=== PATIENT | female | born 1985 | race Hispanic/Latino ===

== ENCOUNTER 2017-06-18 18:49 | Emergency (ER) | payer OTHER ==
[2017-06-18 19:00] VITALS: BMI 23.5
[2017-06-18 19:07] VITALS: BP 121/85; PULSE 97; RESP 18; TEMP 98.4; O2SAT 99
[2017-06-18 19:59] LABS: URINE BILIRUBIN NEGATIVE (NEGATIVE); URINE BLOOD NEGATIVE (NEGATIVE); URINE GLUCOSE (UA) NEGATIVE (NEGATIVE); URINE LEUKOCYTE ESTERASE NEGATIVE Leu/uL (NEGATIVE); URINE NITRATE NEGATIVE (NEGATIVE); URINE PROTEIN TRACE mg/dL (<30 mg/dL); URINE UROBILINOGEN 0.2 E.U./dL (<1 E.U./dL)
[2017-06-18 20:02] LABS: URINE APPEARANCE CLEAR (CLEAR); URINE COLOR YELLOW (YELLOW)
[2017-06-18 20:15] LABS: URINE BACTERIA SMALL (NEG); URINE RBC 0 - 2 /hpf (0-2); URINE WBC 0 - 2 /hpf (0-6)
[2017-06-18 20:16] LABS: HCG,QUALITATIVE URINE NEGATIVE (NEGATIVE)
[2017-06-18 20:38] LABS: HEMOGLOBIN 12.6 g/dL (12.0-16.0); MEAN CELL VOLUME 92.7 fl (80.0-105.0); MEAN CORPUSCULAR HEMOGLOBIN 31.6 pg (25.0-35.0); MEAN CORPUSCULAR HGB CONC 34.1 g/dl (31.0-37.0); RBC 3.99 10^6/uL (3.5-6.1); RED CELL DISTRIBUTION WIDTH 12.7 % (11.5-14.5); WHITE BLOOD COUNT 6.5 10^3/ul (4.5-11.0)
[2017-06-18 20:46] LABS: ALB/GLOB RATIO 1.5 (1.1-1.8); ALBUMIN 4.3 g/dL (3.0-4.8); ALT/SGPT 60 U/L (7-56); AST/SGOT 47 U/L (15-39); BLOOD UREA NITROGEN 6 mg/dL (7-21); CALCIUM 9.1 mg/dL (8.4-10.5); GFR AFRICAN-AMERICAN > 60; GFR NON-AFRICAN AMERICAN > 60; LIPASE 103 U/L (23-300)
--- NOTE | 2017-06-18 21:13 | US ---
EXAM: US Pelvis Complete, Transabdominal CLINICAL HISTORY: 31 years old, female; Pain; Pelvic pain TECHNIQUE: Real-time transabdominal pelvic ultrasound (complete) with image documentation. COMPARISON: CT - ABD PELVIS W/O PO OR IV CONT 03/24/2016 7:55:29 PM FINDINGS: Uterus/cervix: Uterus measures 5.6 x 3.1 x 3.4 cm in size. No myometrial mass. Endometrium: 1.0 cm in thickness. Right ovary: 2.4 x 2.6 x 2.4 cm in size. 2.0 x 1.9 x 1.7 cm anechoic lesion. Normal flow. Left ovary: 1.4 x 2.4 x 1.8 cm in size. No mass. Normal flow. Free fluid: No significant free fluid. Bladder: Unremarkable as visualized. IMPRESSION: 1. RIGHT ovarian cyst. 2. Incidental/non-acute findings are described above. EXAM: US Pelvis, Transvaginal CLINICAL HISTORY: 31 years old, female; Pain; Pelvic pain TECHNIQUE: Real-time transvaginal pelvic ultrasound (complete) with image documentation. Transvaginal imaging was used for better evaluation of the endometrium and adnexa. COMPARISON: CT - ABD PELVIS W/O PO OR IV CONT 03/24/2016 7:55:29 PM FINDINGS: Uterus/cervix: Uterus measures 5.6 x 3.1 x 3.4 cm in size. No myometrial mass. Endometrium: 1.0 cm in thickness. Right ovary: 2.4 x 2.6 x 2.4 cm in size. 2.0 x 1.9 x 1.7 cm anechoic lesion. Normal flow. Left ovary: 1.4 x 2.4 x 1.8 cm in size. No mass. Normal flow. Free fluid: No significant free fluid. Bladder: Empty bladder which cannot be evaluated with this probe.
--- NOTE | 2017-06-18 22:07 | ED PDOC ---
Arrival/HPI - General Chief Complaint: Female Genitourinary Time Seen by Provider: 06/18/17 19:23 Historian: Patient - History of Present Illness Narrative History of Present Illness (Text): 06/18/17 19:38 Genoveva Pereyra is a 31 year old female, whose past medical history includes Crohn's disease, who presents to the ED complaining of lower abdominal discomfort for the past 3 weeks.Described as a pressure like discomfort.No dysuria.Occassional urinary frequency.No vaginal bleeding or abnormal vaginal discharge. Patient denies any fever, chills, nausea, vomiting, diarrhea, back pain, headache, dizziness, or any other complaints. Time/Duration: < month (3 weeks) Symptom Onset: Gradual Symptom Course: Unchanged Activities at Onset: Rest, Light Context: Home Past Medical History - Provider Review Nursing Documentation Reviewed: Yes - Infectious Disease Hx of Infectious Diseases: None - Cardiac Hx Cardiac Disorders: No - Pulmonary Hx Respiratory Disorders: Yes Hx Pneumonia: Yes - Neurological Hx Neurological Disorder: No - HEENT Hx HEENT Disorder: No - Renal Hx Renal Disorder: No - Endocrine/Metabolic Hx Endocrine Disorders: No - Hematological/Oncological Hx Blood Disorders: Yes Hx Anemia: Yes (HAD IRON INFUSIONS) - Integumentary Hx Dermatological Disorder: No - Musculoskeletal/Rheumatological Hx Musculoskeletal Disorders: Yes Hx Falls: No Other/Comment: LEFT WRIST FX,CHIN FX,BROKEN PATELLA,SPRAINED ANKLE - Gastrointestinal Hx Gastrointestinal Disorders: Yes Hx Crohn's Disease: Yes Hx Gastroesophageal Reflux: Yes Other/Comment: ENTEROCOLITIS - Genitourinary/Gynecological Hx Genitourinary Disorders: No Other/Comment: L OVARIAN CYST 1.6 CM - Psychiatric Hx Psychophysiologic Disorder: No Hx Emotional Abuse: No Hx Physical Abuse: No Hx Substance Use: No - Anesthesia Hx Anesthesia: No Hx Anesthesia Reactions: No Hx Malignant Hyperthermia: No - Suicidal Assessment Feels Threatened In Home Enviroment: No Family/Social History - Physician Review Nursing Documentation Reviewed: Yes Family/Social History: Unknown Family HX Smoking Status: Never Smoked Hx Alcohol Use: No Hx Substance Use: No Allergies/Home Meds Allergies/Adverse Reactions: Allergies hydrocodone Allergy (Verified 06/18/17 19:00) ANAPHYLAXIS Home Medications: Home Meds Medication Instructions Recorded Confirmed Dexlansoprazole [Dexilant] 60 mg PO DAILY 12/11/14 06/18/17 Famotidine 10 mg PO DAILY 12/11/14 06/18/17 Ondansetron HCl [Zofran] 8 mg PO PRN PRN 12/11/14 06/18/17 Mercaptopurine [6-Mp] 50 mg PO DAILY 07/22/15 06/18/17 Potassium Chloride [Klor-Con 1 tab PO DAILY 03/24/16 06/18/17 Sprinkle] Review of Systems - Physician Review All systems were reviewed & negative as marked: Yes - Review of Systems Constitutional: Normal. absent: Fevers Eyes: Normal ENT: Normal Respiratory: Normal. absent: SOB, Cough Cardiovascular: Normal Gastrointestinal: Abdominal Pain (+lower abdominal discomfort). absent: Diarrhea, Nausea, Vomiting Genitourinary Female: absent: Vaginal Discharge Musculoskeletal: Normal. absent: Back Pain, Neck Pain Skin: Normal. absent: Rash Neurological: Normal. absent: Headache, Dizziness Endocrine: Normal Hemo/Lymphatic: Normal Psychiatric: Normal Physical Exam Vital Signs Reviewed: Yes Vital Signs Temp Pulse Resp BP Pulse Ox 06/18/17 19:05 98.4 F 97 H 18 121/85 99 Temperature: Afebrile Blood Pressure: Normal Pulse: Regular Respiratory Rate: Normal Appearance: Positive for: Well-Appearing, Non-Toxic, Comfortable Pain Distress: None Mental Status: Positive for: Alert and Oriented X 3 - Systems Exam Head: Present: Atraumatic, Normocephalic Pupils: Present: PERRL Extroacular Muscles: Present: EOMI Conjunctiva: Present: Normal Ears: Present: Normal, NORMAL TM, Normal Canal. No: Erythema, TM Bulging, Fluid , TM Perf Mouth: Present: Moist Mucous Membranes Pharnyx: Present: Normal. No: ERYTHEMA, EXUDATE, TONSILS ENLARGED, Peritonsilar Swelling, Uvular Deviation, Muffled/Hoarse Voice, Strider, Soft Palate/Uvular Edema Nose (External): Present: Atraumatic Nose (Internal): Present: Normal Inspection Neck: Present: Normal Range of Motion. No: Meningeal Signs, MIDLINE TENDERNESS , Paraspinal Tenderness Respiratory/Chest: Present: Clear to Auscultation, Good Air Exchange. No: Respiratory Distress, Accessory Muscle Use Cardiovascular: Present: Regular Rate and Rhythm, Normal S1, S2. No: Murmurs Abdomen: Present: Normal Bowel Sounds. No: Tenderness, Distention, Peritoneal Signs Genitourinary/Pelvic Exam: Present: Normal External Genitalia, Other (RN Sara present as talent acquisition lead). No: Vaginal Discharge, Vaginal Bleeding, Vaginal Lesions, Adenexal Tenderness, Adenexal Mass, Cervical Motion Tendernes Back: Present: Normal Inspection. No: CVA Tenderness, Midline Tenderness, Paraspinal Tenderness Upper Extremity: Present: Normal Inspection. No: Cyanosis, Edema Lower Extremity: Present: Normal Inspection. No: Edema Neurological: Present: GCS=15, CN II-XII Intact, Speech Normal Skin: Present: Warm, Dry, Normal Color. No: Rashes Psychiatric: Present: Alert, Oriented x 3, Normal Insight, Normal Concentration Medical Decision Making ED Course and Treatment: 06/18/17 19:38 Impression: 31 year old female c/o lower abdominal pressure discomfort for 3 weeks with occassional urinary frequency. Differential Diagnosis included but are not limited to: Plan: -- US Transvaginal -- Labs, lipase -- Urinalysis -- Reassess and disposition Progress Notes: Reviewed sono, US Transvaginal shows: 1. RIGHT ovarian cyst. 2. Incidental/non-acute findings are described above. US Pelvis: 1. RIGHT ovarian cyst. 2. Incidental/non-acute findings are described above - Lab Interpretations Lab Results: 06/18/17 20:30 06/18/17 20:30 Lab Results 06/18/17 20:30: WBC 6.5, RBC 3.99, Hgb 12.6, Hct 37.0, MCV 92.7, MCH 31.6, MCHC 34.1, RDW 12.7, Plt Count 290, MPV 10.0 06/18/17 20:30: Sodium 142, Potassium 3.3 L, Chloride 104, Carbon Dioxide 26, Anion Gap 15, BUN 6 L, Creatinine 0.5, Est GFR ( Amer) > 60, Est GFR (Non -Af Amer) > 60, Random Glucose 83, Calcium 9.1, Total Bilirubin 0.3, AST 47 H, ALT 60 H, Alkaline Phosphatase 65, Total Protein 7.2, Albumin 4.3, Globulin 2.9 , Albumin/Globulin Ratio 1.5, Lipase 103 06/18/17 19:50: Urine Color Yellow, Urine Appearance Clear, Urine pH 6.0, Ur Specific Mcdermitt >= 1.030, Urine Protein Trace H, Urine Glucose (UA) Negative, Urine Ketones Negative, Urine Blood Negative, Urine Nitrate Negative, Urine Bilirubin Negative, Urine Urobilinogen 0.2, Ur Leukocyte Esterase Negative, Urine RBC 0 - 2, Urine WBC 0 - 2, Ur Epithelial Cells 1 - 3, Urine Bacteria Small, Urine Other Mucus, Urine HCG, Qual Negative I have reviewed the lab results: Yes - RAD Interpretation Narrative RAD Interpretations (Text): US Transvaginal shows: Uterus/cervix: Uterus measures 5.6 x 3.1 x 3.4 cm in size. No myometrial mass. Endometrium: 1.0 cm in thickness. Right ovary: 2.4 x 2.6 x 2.4 cm in size. 2.0 x 1.9 x 1.7 cm anechoic lesion. Normal flow. Left ovary: 1.4 x 2.4 x 1.8 cm in size. No mass. Normal flow. Free fluid: No significant free fluid. Bladder: Unremarkable as visualized. IMPRESSION: 1. RIGHT ovarian cyst. 2. Incidental/non-acute findings are described above. US Pelvis: Uterus/cervix: Uterus measures 5.6 x 3.1 x 3.4 cm in size. No myometrial mass. Endometrium: 1.0 cm in thickness. Right ovary: 2.4 x 2.6 x 2.4 cm in size. 2.0 x 1.9 x 1.7 cm anechoic lesion. Normal flow. Left ovary: 1.4 x 2.4 x 1.8 cm in size. No mass. Normal flow. Free fluid: No significant free fluid. Bladder: Empty bladder which cannot be evaluated with this probe. IMPRESSION: 1. RIGHT ovarian cyst. 2. Incidental/non-acute findings are described above Radiology Orders: 06/18/17 19:39 TRANSVAGINAL [US] Stat Supervisor Pre Wave: Radiologist - Medication Orders Current Medication Orders: Discontinued Medications Potassium Chloride (K-Dur 20 Meq Er Tab) 20 meq PO STAT STA Stop: 06/18/17 23:14 Last Admin: 06/18/17 23:59 Dose: 20 meq - Scribe Statement The provider has reviewed the documentation as recorded by the Socorro Weaver Provider Scribe Attestation: All medical record entries made by the Pennieibstephy were at my direction and personally dictated by me. I have reviewed the chart and agree that the record accurately reflects my personal performance of the history, physical exam, medical decision making, and the department course for this patient. I have also personally directed, reviewed, and agree with the discharge instructions and disposition. Disposition/Present on Arrival - Present on Arrival Any Indicators Present on Arrival: No History of DVT/PE: No History of Uncontrolled Diabetes: No Urinary Catheter: No History of Decub. Ulcer: No History Surgical Site Infection Following: None - Disposition Have Diagnosis and Disposition been Completed?: Yes Diagnosis: Abdominal pain, Ovarian cyst Disposition: HOME/ ROUTINE Disposition Time: 01:45 Patient Plan: Discharge Condition: STABLE Discharge Instructions (ExitCare): Abdominal Pain (ED), Ovarian Cyst (ED) Additional Instructions: Take meds as prescribed/follow up with your doctor this week Prescriptions: Naproxen [Naprosyn Tab] 375 mg PO BID PRN #10 tab PRN Reason: Pain, Moderate (4-7) Forms: [facility] ([place])
[2017-06-18] MEDS ORDERED: Potassium Chloride 20 mEq ER Tab PO STA (23:13)
== END 2017-06-19 02:03 | disposition home or self-care (01) ==
LOC: ED 18:49
DX: R10.30 Lower abdominal pain, unspecified (principal); N83.201 Unspecified ovarian cyst, right side